=== PATIENT | male | born 1975 | race Caucasian/White ===

== ENCOUNTER 2019-03-31 12:24 | Emergency (ER) | payer OTHER ==
[2019-03-31 12:32] VITALS: BP 158/100
[2019-03-31] MEDS ORDERED: OXYCODONE-ACETAMINOPHEN 5-325 MG TABLET PO ONE (12:41)
--- NOTE | 2019-03-31 12:42 | ER Document Report ---
HPI - HPI Time Seen by Provider: 03/31/19 12:38 Pain Level: 2 - MUSCULOSKELETAL Musculoskeletal: REPORTS: Extremity pain - r hand Past Medical History - Social History Smoking Status: Current Every Day Smoker Chew tobacco use (# tins/day): No Frequency of alcohol use: Occasional Drug Abuse: None Patient has suicidal ideation: No Patient has homicidal ideation: No Renal/ Medical History: Denies: Hx Peritoneal Dialysis GI Medical History: Reports: Hx Gastroesophageal Reflux Disease Psychiatric Medical History: Reports: Hx Depression - PTSD Past Surgical History: Reports: Hx Tonsillectomy Course - Vital Signs Vital signs: Temp Pulse Resp BP Pulse Ox 98.2 F 84 19 158/100 H 98 03/31/19 12:29 03/31/19 12:29 03/31/19 12:29 03/31/19 12:29 03/31/19 12:29 Discharge - Discharge Referrals: LOCALMD,NO [Primary Care Provider] - Follow up as needed
--- NOTE | 2019-03-31 13:32 | RADIOLOGY REPORT (SQ) ---
EXAM DESCRIPTION: HAND RIGHT 3 VIEWS COMPLETED DATE/TIME: 03/31/2019 1:10 pm REASON FOR STUDY: hand pain after punching a heavybag COMPARISON: None. EXAM PARAMETERS: NUMBER OF VIEWS: Three views. TECHNIQUE: AP, lateral and oblique radiographic images acquired of the right hand. LIMITATIONS: None. FINDINGS: MINERALIZATION: Normal. BONES: No acute fracture or dislocation. No worrisome bone lesions. JOINTS: No effusions. SOFT TISSUES: No soft tissue swelling. No foreign body. OTHER: No other significant finding. IMPRESSION: NEGATIVE STUDY OF THE RIGHT HAND. NO RADIOGRAPHIC EVIDENCE OF ACUTE INJURY. TECHNICAL DOCUMENTATION: JOB ID: [id number] [employer]- All Rights Reserved Reading location - IP/workstation name: [email or web address]
--- NOTE | 2019-03-31 14:08 | ER Document Report ---
HPI - HPI Time Seen by Provider: 03/31/19 12:38 Pain Level: 4 Notes: Patient is a 43-year-old male with no significant past medical history presents complaining of right hand pain swelling and bruising after punching a punching bag about 5 days ago. Patient states that he has had some increased swelling and pain since then. Patient reports having broken this hand previously. Denies drug allergies. No other concerns or complaints. He is right-hand dominant. Denies any headache, fever, URI, sore throat, chest pain, palpitations, syncope, cough, shortness of breath, wheeze, dyspnea, abdominal pain, nausea/vomiting/diarrhea, urinary retention, dysuria, hematuria, loss of control of bowel or bladder, numbness/tingling, muscle paralysis/weakness, or rash. - ROS Systems Reviewed and Negative: Yes All other systems reviewed and negative - MUSCULOSKELETAL Musculoskeletal: REPORTS: Extremity pain - r hand Past Medical History - Social History Smoking Status: Current Every Day Smoker Chew tobacco use (# tins/day): No Frequency of alcohol use: Occasional Drug Abuse: None Family History: Reviewed & Not Pertinent Patient has suicidal ideation: No Patient has homicidal ideation: No Renal/ Medical History: Denies: Hx Peritoneal Dialysis GI Medical History: Reports: Hx Gastroesophageal Reflux Disease Psychiatric Medical History: Reports: Hx Depression - PTSD Past Surgical History: Reports: Hx Tonsillectomy Vertical Provider Document - CONSTITUTIONAL Agree With Documented VS: Yes Notes: PHYSICAL EXAMINATION: GENERAL: Well-appearing, well-nourished and in no acute distress. HEAD: Atraumatic, normocephalic. NECK: Normal range of motion, supple without lymphadenopathy. No midline tenderness. LUNGS: Breath sounds clear to auscultation bilaterally and equal. No wheezes rales or rhonchi. HEART: Regular rate and rhythm without murmurs, rubs, gallops. Musculoskeletal: Rt hand/wrist: + swelling and mild ecchymosis noted to the dorsal lateral hand with associated tenderness. N/V intact distal. FROM to passive/active at the wrist. 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 No scaphoid tenderness. Extremities: No cyanosis, clubbing, or edema b/l. Peripheral pulses 2+. Capillary refill less than 3 seconds. NEUROLOGICAL: Normal speech, normal gait. Normal sensory, motor exams otherwise unremarkable PSYCH: Normal mood, normal affect. SKIN: see above. No rash Course - Re-evaluation Re-evalutation: 03/31/19 14:15 Patient is an afebrile, well-hydrated, 43-year-old male who presents to the ED with Rt hand pain which I suspect to be a sprain/strain vs contusion. Vitals are acceptable without any significant tachycardia, tachypnea, or hypoxia. PE is otherwise unremarkable for any neurovascular compromise, obvious tendon/ligament rupture, obvious fracture/dislocation, septic joint. X-ray was unremarkable for any acute pathology. Cock up splint provided today. Pt given tylenol/motrin. Patient is nontoxic-appearing. No other labs or imaging warranted at this time based on H&P. Conservative measures otherwise for symptoms. Recheck with your PCM in 3-5 days. Consider consult orthopedics. Return to the ED with any worsening/concerning symptoms otherwise as reviewed in discharge. Patient is in agreement. - Vital Signs Vital signs: Temp Pulse Resp BP Pulse Ox 98.2 F 84 19 158/100 H 98 03/31/19 12:29 03/31/19 12:29 03/31/19 12:29 03/31/19 12:29 03/31/19 12:29 Discharge - Discharge Clinical Impression: Right hand pain Condition: Stable Disposition: HOME, SELF-CARE Additional Instructions: Rest, Ice, Compression, Elevation Tylenol/ibuprofen as needed Light stretches daily Strength exercises as able Moist heat and massage may help F/u with your PCP in 3-5 days for a recheck Consider consult(s) with Orthopedics/physical therapy for ongoing/worsening symptoms Return to the ED with any worsening symptoms and/or development of fever, headache, chest pain, palpitations, syncope, shortness of breath, trouble breathing, abdominal pain, n/v/d, muscle weakness/paralysis, numbness/tingling, swelling, redness, or other worsening symptoms that are concerning to you. Prescriptions: Methocarbamol [Robaxin] 500 mg PO TID PRN #12 tablet PRN Reason: Naproxen 500 mg PO BID #14 tablet Forms: Elevated Blood Pressure, Smoking Cessation Education, Return to Work Referrals: [facility] [Provider Group] - Follow up as needed
[2019-03-31] MEDS ORDERED: ACETAMINOPHEN 325 MG TABLET PO ONE (14:13)
[2019-03-31] MEDS ORDERED: IBUPROFEN 600 MG TABLET PO ONE (14:13)
== END 2019-03-31 14:26 | disposition home or self-care (01) ==
LOC: ER 12:24
DX: M79.641 Pain in right hand (principal); F17.200 Nicotine dependence, unspecified, uncomplicated
CPT/HCPCS: 99283; L3908

== ENCOUNTER 2019-04-15 19:03 | Emergency (ER) | payer OTHER ==
[2019-04-15 19:21] VITALS: BP 101/63
[2019-04-15] MEDS ORDERED: KETOROLAC TROMETHAMINE INJ/PF 30 MG/1 ML SDV IV ONE (19:29)
[2019-04-15] MEDS ORDERED: ONDANSETRON HCL INJ/PF 4 MG/2 ML SDV IV ONE (19:29)
--- NOTE | 2019-04-15 19:31 | ER Document Report ---
ED Medical Screen (RME) - General Chief Complaint: Abdominal Pain Stated Complaint: ABDOMINAL PAIN Time Seen by Provider: 04/15/19 19:26 Primary Care Provider: MELINDA PETTY [Primary Care Provider] - Follow up as needed Mode of Arrival: Wheelchair Information source: Patient Notes: Patient presents with left-sided abdominal pain that started about 3 hours ago. Patient states he had no pain and then suddenly had sharp pain that broke him out in sweat and he became nauseous and vomited x2. Patient denies any flank pain, fever or testicular tenderness. hx: GERD I have greeted and performed a rapid initial assessment of this patient. A comprehensive ED assessment and evaluation of the patient, analysis of test results and completion of the medical decision making process will be conducted by additional ED providers. TRAVEL OUTSIDE OF THE [place] IN LAST 30 DAYS: No - Related Data Allergies/Adverse Reactions: No Known Allergies Allergy (Verified 03/31/19 12:25) Past Medical History Renal/ Medical History: Denies: Hx Peritoneal Dialysis GI Medical History: Reports: Hx Gastroesophageal Reflux Disease Psychiatric Medical History: Reports: Hx Depression - PTSD Past Surgical History: Reports: Hx Tonsillectomy Physical Exam - Vital signs Vitals: Temp Pulse Resp BP Pulse Ox 97.5 F 73 20 101/63 98 04/15/19 19:17 04/15/19 19:17 04/15/19 19:17 04/15/19 19:17 04/15/19 19:17 - Abdominal Tenderness: Tender - Left side abdominal pain Course - Vital Signs Vital signs: Temp Pulse Resp BP Pulse Ox 97.5 F 73 20 101/63 98 04/15/19 19:17 04/15/19 19:17 04/15/19 19:17 04/15/19 19:17 04/15/19 19:17 Doctor's Discharge - Discharge Referrals: MALINDA,MELINDA [Primary Care Provider] - Follow up as needed
[2019-04-15 20:47] LABS: ABSOLUTE BASOPHILS # (AUTO) 0.1 10^3/uL (0.0-0.2); BASOPHILS % (AUTO) 0.3 % (0-2); MEAN CORPUSCULAR HGB CONC 33.7 g/dL (32.0-36.0); TOTAL CELLS COUNTED % (AUTO) 100 %
[2019-04-15 20:52] LABS: ABSOLUTE EOSINOPHILS # (AUTO) 0.2 10^3/uL (0.0-0.6); ABSOLUTE LYMPHOCYTES (AUTO) 1.9 10^3/uL (0.5-4.7); ABSOLUTE MONOCYTES (AUTO) 1.3 10^3/uL (0.1-1.4); ABSOLUTE NEUT (AUTO) 16.4 10^3/uL (1.7-8.2); HEMATOCRIT 51.6 % (37.9-51.0); HEMOGLOBIN 17.4 g/dL (13.5-17.0); LYMPHOCYTES % (AUTO) 9.6 % (13-45); MEAN CORPUSCULAR HEMOGLOBIN 29.5 pg (27.0-33.4); MEAN CORPUSCULAR VOLUME 88 fl (80-97); MONOCYTES % (AUTO) 6.5 % (3-13); PLATELET COUNT 297 10^3/uL (150-450); RED BLOOD COUNT 5.89 10^6/uL (4.35-5.55); RED CELL DISTRIBUTION WIDTH 13.4 % (11.5-14.0); SEGMENTED NEUTROPHILS % (AUTO) 82.6 % (42-78); WHITE BLOOD COUNT 19.9 10^3/uL (4.0-10.5)
[2019-04-15 21:03] LABS: ALANINE AMINOTRANSFERASE 32 U/L (21-72); ALBUMIN 4.9 g/dL (3.5-5.0); ALKALINE PHOSPHATASE 82 U/L (38-126); ANION GAP 12 (5-19); ASPARTATE AMINO TRANSFERASE 34 U/L (17-59); BILIRUBIN,DIRECT 0.4 mg/dL (0.0-0.4); BILIRUBIN,TOTAL 0.7 mg/dL (0.2-1.3); BLOOD UREA NITROGEN 13 mg/dL (7-20); CALCIUM 10.3 mg/dL (8.4-10.2); CARBON DIOXIDE 27 mmol/L (22-30); CHLORIDE 102 mmol/L (98-107); GLUCOSE 138 mg/dL (75-110); LIPASE 334.6 U/L (23-300); SODIUM 140.5 mmol/L (137-145)
== END 2019-04-15 21:45 | disposition left against medical advice (07) ==
LOC: ER 19:03
DX: R10.9 Unspecified abdominal pain (principal); R10.819 Abdominal tenderness, unspecified site; R11.2 Nausea with vomiting, unspecified; Z53.20 Procedure and treatment not carried out because of patient's decision for unspecified reasons
CPT/HCPCS: 99281; 96374; 96375; 36415; 83690; 85025; 80053; J1885; J2405

== ENCOUNTER 2019-04-21 14:58 | Emergency (ER) | payer OTHER ==
[2019-04-21] MEDS ORDERED: NORMAL SALINE 1000 ML 1,000 ML IV ONE (15:41)
--- NOTE | 2019-04-21 15:43 | ER Document Report ---
ED Medical Screen (RME) - General Chief Complaint: Abdominal Pain Stated Complaint: STOMACH PAIN Time Seen by Provider: 04/21/19 15:38 Primary Care Provider: MALINDA,MELINDA [Primary Care Provider] - Follow up as needed Mode of Arrival: Wheelchair Information source: Patient Notes: 43-year-old male presented to ED for complaint of abdominal pain nausea vomiting and diarrhea. He states the abdominal pain is been generalized. He states the abdominal pain nausea vomiting diarrhea and fever started on Thursday. He came into the emergency room he had blood work done and left before the results he was reevaluated by another provider. He states he was called by 1 of the nurses and told that his white count was elevated. He states he is continued to have fevers off and on. He states he smokes a pack a day drinks a sixpack a week and uses Marinol for his PTSD and other problems. He does have a history of PTSD, TBI, anxiety, degenerative disc these in the neck and migraines. Patient is alert oriented respirations regular and unlabored speaking in full sentences. I have greeted and performed a rapid initial assessment of this patient. A comprehensive ED assessment and evaluation of the patient, analysis of test results and completion of medical decision making process will be conducted by an additional ED providers. Dictation of this chart was performed using voice recognition software; therefore, there may be some unintended grammatical errors. TRAVEL OUTSIDE OF THE [place] IN LAST 30 DAYS: No - Related Data Allergies/Adverse Reactions: No Known Allergies Allergy (Verified 04/21/19 15:00) Past Medical History Renal/ Medical History: Denies: Hx Peritoneal Dialysis GI Medical History: Reports: Hx Gastroesophageal Reflux Disease Psychiatric Medical History: Reports: Hx Attention Deficit Hyperactivity Disorder, Hx Depression - PTSD Past Surgical History: Reports: Hx Tonsillectomy Physical Exam - Vital signs Vitals: Temp Pulse Resp BP Pulse Ox 98.1 F 84 16 119/81 98 04/21/19 15:14 04/21/19 15:14 04/21/19 15:14 04/21/19 15:14 04/21/19 15:14 Course - Vital Signs Vital signs: Temp Pulse Resp BP Pulse Ox 98.1 F 84 16 119/81 98 04/21/19 15:14 04/21/19 15:14 04/21/19 15:14 04/21/19 15:14 04/21/19 15:14 Doctor's Discharge - Discharge [facility] [[facility] - Follow up as needed
[2019-04-21 16:17] LABS: ABSOLUTE BASOPHILS # (AUTO) 0.1 10^3/uL (0.0-0.2); ABSOLUTE EOSINOPHILS # (AUTO) 0.2 10^3/uL (0.0-0.6); ABSOLUTE LYMPHOCYTES (AUTO) 2.6 10^3/uL (0.5-4.7); ABSOLUTE MONOCYTES (AUTO) 0.8 10^3/uL (0.1-1.4); ABSOLUTE NEUT (AUTO) 6.7 10^3/uL (1.7-8.2); BASOPHILS % (AUTO) 0.7 % (0-2); HEMATOCRIT 49.5 % (37.9-51.0); HEMOGLOBIN 16.9 g/dL (13.5-17.0); LYMPHOCYTES % (AUTO) 25.3 % (13-45); MEAN CORPUSCULAR HEMOGLOBIN 29.9 pg (27.0-33.4); MEAN CORPUSCULAR HGB CONC 34.1 g/dL (32.0-36.0); MEAN CORPUSCULAR VOLUME 88 fl (80-97); MONOCYTES % (AUTO) 7.4 % (3-13); PLATELET COUNT 286 10^3/uL (150-450); RED BLOOD COUNT 5.63 10^6/uL (4.35-5.55); RED CELL DISTRIBUTION WIDTH 13.1 % (11.5-14.0); SEGMENTED NEUTROPHILS % (AUTO) 64.6 % (42-78); TOTAL CELLS COUNTED % (AUTO) 100 %; WHITE BLOOD COUNT 10.3 10^3/uL (4.0-10.5)
[2019-04-21 16:29] LABS: ALANINE AMINOTRANSFERASE 24 U/L (21-72); ALBUMIN 4.4 g/dL (3.5-5.0); ALKALINE PHOSPHATASE 68 U/L (38-126); ANION GAP 7 (5-19); ASPARTATE AMINO TRANSFERASE 24 U/L (17-59); BILIRUBIN,DIRECT 0.2 mg/dL (0.0-0.4); BILIRUBIN,TOTAL 0.5 mg/dL (0.2-1.3); BLOOD UREA NITROGEN 10 mg/dL (7-20); CALCIUM 10.3 mg/dL (8.4-10.2); CARBON DIOXIDE 29 mmol/L (22-30); CHLORIDE 102 mmol/L (98-107); GLUCOSE 91 mg/dL (75-110); LIPASE 385.1 U/L (23-300); POTASSIUM 4.2 mmol/L (3.6-5.0); SODIUM 137.5 mmol/L (137-145); TOTAL PROTEIN 7.1 g/dL (6.3-8.2)
--- NOTE | 2019-04-21 16:59 | RADIOLOGY REPORT (SQ) ---
EXAM DESCRIPTION: ACUTE ABDOMEN SERIES COMPLETED DATE/TIME: 04/21/2019 4:31 pm REASON FOR STUDY: Abdominal pain nausea vomiting diarrhea COMPARISON: None. NUMBER OF VIEWS: Three views. TECHNIQUE: Frontal chest, supine abdomen and upright abdomen radiographic images acquired. LIMITATIONS: None. FINDINGS: CHEST: No acute infiltrates. No pleural effusion or pneumothorax. Cardiac silhouette siz e, major unremarkable. FREE AIR: None. No abnormal gas collections. BOWEL GAS PATTERN: Nonobstructive pattern. No dilated loops or air fluid levels. CALCIFICATIONS: No suspicious calcifications. HARDWARE: None in the abdomen. SOFT TISSUES: No gross mass or suggestion of organomegaly. BONES: No acute fracture. No worrisome bone lesions. OTHER: No other significant finding. IMPRESSION: NO RADIOGRAPHIC EVIDENCE FOR ACUTE ABDOMINAL DISEASE. TECHNICAL DOCUMENTATION: JOB ID: [id number] [employer]- All Rights Reserved Reading location - IP/workstation name: [email or web address]
[2019-04-21 18:59] LABS: APPEARANCE,URINE CLEAR; BILIRUBIN,URINE NEGATIVE (NEGATIVE); COLOR,URINE YELLOW; GLUCOSE, URINE NEGATIVE (NEGATIVE); KETONES,URINE NEGATIVE (NEGATIVE); LEUKOCYTE ESTERASE,URINE NEGATIVE (NEGATIVE); NITRITE,URINE NEGATIVE (NEGATIVE); PROTEIN,URINE NEGATIVE (NEGATIVE); URINE SPECIFIC GRAVITY 1.017; UROBILINOGEN,URINE NEGATIVE mg/dL (<2.0)
[2019-04-21 19:20] LABS: URINE AMPHETAMINES SCREEN UNCONFIRMED POSITIVE; URINE BARBITURATES SCREEN NEGATIVE; URINE BENZODIAZEPINES SCREEN NEGATIVE; URINE MARIJUANA (THC) SCREEN UNCONFIRMED POSITIVE; URINE PHENCYCLIDINE SCREEN NEGATIVE
[2019-04-21 19:21] LABS: URINE COCAINE SCREEN NEGATIVE
[2019-04-21 19:22] LABS: URINE METHADONE SCREEN NEGATIVE
--- NOTE | 2019-04-21 19:58 | ER Document Report ---
ED General - General Chief Complaint: Abdominal Pain Stated Complaint: STOMACH PAIN Time Seen by Provider: 04/21/19 15:38 Primary Care Provider: MALINDA,MELINDA [Primary Care Provider] - Follow up as needed Mode of Arrival: Wheelchair Information source: Patient TRAVEL OUTSIDE OF THE [place] IN LAST 30 DAYS: No - HPI Patient complains to provider of: Stomach pain, intestinal spasms, fever, weakness, diarrhea Onset: Other - 1 week ago Onset/Duration: Constant Quality of pain: Sharp Severity: Severe Pain Level: 4 Associated symptoms: Body/muscle aches, Diarrhea, Fever, Nausea, Vomiting Exacerbated by: Denies Relieved by: Denies Similar symptoms previously: No Recently seen / treated by doctor: No Notes: 43-year-old male coming in today chief complaint of intense intestinal spasms, nausea, vomiting, diarrhea, weakness for about a week, possibly getting slightly better. Patient came to our facility last Thursday and had labs drawn but did not stick around to be seen due to a long wait. He is continued to have the above symptoms. He got a call back from the hospital telling him he had a high white blood cell count and to return if he was not feeling any better. - Related Data Allergies/Adverse Reactions: No Known Allergies Allergy (Verified 04/21/19 15:00) Past Medical History - General Information source: Patient - Social History Smoking Status: Current Every Day Smoker Chew tobacco use (# tins/day): No Frequency of alcohol use: Social Family History: Reviewed & Not Pertinent Patient has suicidal ideation: No Patient has homicidal ideation: No Neurological Medical History: Reports: Hx Migraine Renal/ Medical History: Denies: Hx Peritoneal Dialysis GI Medical History: Reports: Hx Gastroesophageal Reflux Disease Psychiatric Medical History: Reports: Hx Attention Deficit Hyperactivity Disorder, Hx Depression - PTSD Past Surgical History: Reports: Hx Tonsillectomy Review of Systems - Review of Systems Notes: Constitutional: Positive for fever and chills EENT: No eye redness. No eye pain. No ear pain. No sore throat. Cardiovascular: No chest pain. No palpitations. Respiratory: No cough. No shortness of breath. No respiratory distress. Gastrointestinal: Positive for abdominal pain, nausea, vomiting, diarrhea Genitourinary: Atraumatic. No lesions. No pain. No discharge. Musculoskeletal: Atraumatic. No swelling. No deformities. Skin: No rash or lesions. Lymphatic: No swollen lymph nodes. Neurologic: No headache. No syncope. Psychiatric: No suicidal or homicidal ideation. Physical Exam - Vital signs Vitals: Temp Pulse Resp BP Pulse Ox 98.1 F 84 16 119/81 98 04/21/19 15:14 04/21/19 15:14 04/21/19 15:14 04/21/19 15:14 04/21/19 15:14 - Notes Notes: General: Well-developed, well-nourished. In no acute distress. Non-toxic appearing. Cardiac: Well-perfused. Regular rate and rhythm. No murmurs, rubs, or gallops. Pulmonary: No respiratory distress. No cyanosis. Bilateral lung fiels are clear to auscultation. Abdominal: Non-distended. Non-rigid. Bowels sounds are present in all four quadrants. No guarding or rebound. HEENT: Head is atraumatic. Conjunctivae not reddened. No tearing. PERRL. EOMI. O rbits atraumatic. No periorbital swelling or erythema. Oropharynx is without erythema, swelling, or exudates. Neck: Supple. No adenopathy. No meningismus. Dermatologic: Warm with good turgor. No rash. Atraumatic. Chest: Atraumatic. No chest wall tenderness to palpation. Musculoskeletal: Moves all extremities well. No range of motion deficits. no muscular or joint tenderness. No paraspinal muscle tenderness. no midline spinal tenderness or step-off. Genitourinary: Examination deferred Neurologic: No gross neurologic deficits. Psychiatric: Normal mood. Course - Re-evaluation Re-evalutation: 04/21/19 19:58 Labs reassuring. Patient is not in leukocytosis. Likely viral etiology. Given length of time that he is been symptomatic, will send off for stool culture, ova and parasites, and C. difficile. Doubt that these will show anything. We will call the patient back of any of these come back positive. - Vital Signs Vital signs: Temp Pulse Resp BP Pulse Ox 98.1 F 84 16 119/81 98 04/21/19 15:14 04/21/19 15:14 04/21/19 15:14 04/21/19 15:14 04/21/19 15:14 - Laboratory Result Diagrams: 04/21/19 15:48 04/21/19 15:48 Laboratory results interpreted by me: 04/21/19 04/21/19 15:48 15:48 RBC 5.63 H Calcium 10.3 H Lipase 385.1 H Discharge - Discharge Clinical Impression: Gastroenteritis Condition: Good Disposition: HOME, SELF-CARE Instructions: Abdominal Pain ([facility]), Antispasmodics ([facility]), Clear Liquid Diet ([facility]), Gastroenteritis (adult) ([facility]), Oral Narcotic Medication ([facility]) Additional Instructions: We will notify you if any of your stool studies come back positive and need a specific treatment. Until then, take Bentyl as needed for intestinal cramping. Drink plenty of fluids and be sure to drink some beverages with electrolytes to help replenish what you're losing in your stool. Prescriptions: Dicyclomine HCl [Bentyl 20 mg Tablet] 20 mg PO Q6HP PRN #20 tablet PRN Reason: [facility]errals: [facility] [Primary [facility]] - Follow up as needed
[2019-04-21] MEDS ORDERED: HYDROCODONE/ACETAMINOPHEN 5-325 MG (6 TAB/ER DISP) PO PRN (20:03)
[2019-04-21 20:17] VITALS: BP 144/86
== END 2019-04-21 20:26 | disposition home or self-care (01) ==
LOC: ER 14:58
DX: K52.9 Noninfective gastroenteritis and colitis, unspecified (principal); R50.9 Fever, unspecified; R11.2 Nausea with vomiting, unspecified; R53.1 Weakness; F17.200 Nicotine dependence, unspecified, uncomplicated; R10.9 Unspecified abdominal pain
CPT/HCPCS: 99284; 96360; 96361; 36415; 87045; 87205; 83690; 85025; 80053; 81001; 80307; 87493; 74022; J7030

== ENCOUNTER 2019-07-18 19:51 | Emergency (ER) | payer OTHER ==
--- NOTE | 2019-07-18 20:35 | ER Document Report ---
ED GI/ - General Chief Complaint: Abdominal Pain Stated Complaint: ABDOMINAL PAIN Time Seen by Provider: 07/18/19 20:34 Primary Care Provider: MELINDA PETTY [Primary Care Provider] - Follow up as needed Mode of Arrival: Ambulatory Information source: Patient Notes: HISTORY OF PRESENT ILLNESS: Patient is a 43-year-old male with a past medical history of chronic abdominal pain who presents with recurrence of his abdominal pain beginning earlier today. Patient reports he had sudden onset left flank pain that has since radiated down to the lower abdomen, and now is mainly in the scrotum. Patient reports "I feel like I have been kicked in the nuts." Patient reports that he has a history of kidney stones in the past and this feels similar but not identical. He reports multiple episodes of vomiting, denies fevers, also denies issues with urination. Location: Scrotum, abdomen Onset: Earlier today Provocation: Unknown Quality: Sharp, throbbing Radiation: Left flank down to the left lower abdomen Severity: Severe Timing: Constant Associated symptoms: Denies hematuria or dysuria, no fevers or chills REVIEW OF SYSTEMS: CONSTITUTIONAL : Denies fever or chills, no sweats. Denies recent illness. EENT: Denies eye, ear, throat, or mouth pain or symptoms. Denies nasal or sinus congestion. CARDIOVASCULAR: Denies chest pain. RESPIRATORY: Denies cough, cold, or chest congestion. Denies shortness of breath, difficulty breathing, or wheezing. GASTROINTESTINAL: Denies abdominal pain. Denies nausea, vomiting, or diarrhea. Denies constipation. GENITOURINARY: Positive for left flank and scrotal pain. Denies difficulty urinating, painful urination, burning, frequency, or blood in urine. MUSCULOSKELETAL: Denies neck or back pain or joint pain or swelling. SKIN: Denies rash or skin lesions. HEMATOLOGIC : Denies easy bruising or bleeding. LYMPHATIC: Denies swollen, enlarged glands. NEUROLOGICAL: Denies altered mental status or loss of consciousness. Denies headache. Denies weakness or paralysis or loss of use of either side. Denies problems with gait or speech. Denies sensory or motor loss. PSYCHIATRIC: Denies anxiety or stress or depression. All other systems reviewed and negative. PHYSICAL EXAMINATION: GENERAL: Uncomfortable-appearing, well-nourished and in no acute distress. HEAD: Atraumatic, normocephalic. No scalp deformity, depression, or crepitance. EYES: Pupils are 3 mm and equal/round/reactive to light, extraocular movements intact, sclera anicteric, conjunctiva are normal. ENT: Nares patent bilaterally, oropharynx clear without exudates or palatal petechia. Moist mucous membranes. No tonsil hypertrophy. NECK: Normal range of motion, supple without lymphadenopathy. LUNGS: Breath sounds present, equal, and clear to auscultation bilaterally. No wheezes, rales, or rhonchi. HEART: Regular rate and rhythm without murmurs, rubs, or gallops. 2+ peripheral pulses. Normal capillary refill. ABDOMEN: Soft, nontender, nondistended. Normoactive bowel sounds. No guarding, no rebound. No masses appreciated. BACK: Normal contour, no midline tenderness. Rectal exam deferred. GENITAL: Normal external genitalia, no penile discharge or bleeding, normal vertical lie of the bilateral testes without tenderness or swelling of the scrotum. EXTREMITIES: Normal range of motion, no pitting or edema. No cyanosis. NEUROLOGICAL: No focal neurological deficits. Moves all extremities spontaneously and on command. PSYCH: Normal mood, normal affect. No suicidal thoughts/ideations. No homicidal thoughts/ideations. No hallucinations. SKIN: Warm, dry, normal turgor, no rashes or lesions noted. ASSESSMENT AND PLAN: This patient is a 43-year-old male who presents with acute worsening of his chronic abdominal pain that now involves the scrotum. 1. Will obtain labs, urine, drug screen, scrotal ultrasound, and CT scan of the abdomen/pelvis. 2. Will give IV Toradol for pain control. TRAVEL OUTSIDE OF THE [place] IN LAST 30 DAYS: No - HPI Patient complains to provider of: Abdominal pain Onset: This afternoon Timing/Duration: Sudden, Worse Quality of pain: Sharp, Throbbing Severity at maximum: Severe Severity in ED: Severe Pain Level: 5 Location: LLQ, Left flank, Left testicle, Right testicle Sexual history: Active Associated symptoms: None Exacerbated by: Movement, Walking Relieved by: Denies Similar symptoms previously: No Recently seen / treated by doctor: No - Related Data Allergies/Adverse Reactions: No Known Allergies Allergy (Verified 04/21/19 15:00) Past Medical History - General Information source: Patient, Relative - Social History Smoking Status: Current Every Day Smoker Chew tobacco use (# tins/day): No Frequency of alcohol use: None Drug Abuse: None Lives with: Family Family History: Reviewed & Not Pertinent Patient has suicidal ideation: No Patient has homicidal ideation: No - Past Medical History Cardiac Medical History: Reports: None Pulmonary Medical History: Reports: None EENT Medical History: Reports: None Neurological Medical History: Reports: Hx Migraine Endocrine Medical History: Reports: None Renal/ Medical History: Reports: Hx Kidney Stones. Denies: Hx Peritoneal Dialysis Malignancy Medical History: Reports None GI Medical History: Reports: Hx Gastroesophageal Reflux Disease, Other - History of chronic abdominal pain Musculoskeletal Medical History: Reports None Skin Medical History: Reports None Psychiatric Medical History: Reports: Hx Attention Deficit Hyperactivity Disorder, Hx Depression - PTSD Traumatic Medical History: Reports: None Infectious Medical History: Reports: None Past Surgical History: Reports: Hx Tonsillectomy - Immunizations Immunizations up to date: Yes Hx Diphtheria, Pertussis, Tetanus Vaccination: Yes Review of Systems - Review of Systems Constitutional: No symptoms reported EENT: No symptoms reported Cardiovascular: No symptoms reported Respiratory: No symptoms reported Gastrointestinal: Abdominal pain, Nausea Genitourinary: No symptoms reported Male Genitourinary: See HPI, Testicular pain Musculoskeletal: No symptoms reported Skin: No symptoms reported Hematologic/Lymphatic: No symptoms reported Neurological/Psychological: No symptoms reported -: Yes All other systems reviewed and negative Physical Exam - Vital signs Vitals: Temp Pulse Resp BP Pulse Ox 97.9 F 70 18 110/63 99 07/18/19 20:13 07/18/19 20:13 07/18/19 20:13 07/18/19 20:13 07/18/19 20:13 Interpretation: Normal Course - Re-evaluation Re-evalutation: 07/19/19 00:26 Ultrasound is grossly unremarkable. CT scan shows likely bladder stone passed from the left ureter. Patient is symptomatically resolved. Will discharge the patient home with strict return precautions and follow-up with primary care. All results were explained to and discussed with the patient, and all questions addressed and answered. The patient voices both understanding and agreeing with the plan. - Vital Signs Vital signs: Temp Pulse Resp BP Pulse Ox 97.9 F 88 14 116/75 100 07/18/19 22:51 07/18/19 22:51 07/18/19 22:51 07/18/19 22:51 07/18/19 22:51 - Laboratory Result Diagrams: 07/18/19 21:35 07/18/19 21:35 Laboratory results interpreted by me: 07/18/19 07/18/19 07/18/19 21:35 21:35 21:35 WBC 15.3 H RBC 3.92 L Hgb 11.8 L Hct 34.6 L Lymph % (Auto) 10.6 L Absolute Neuts (auto) 12.6 H Seg Neutrophils % 82.2 H Glucose 143 H Total Protein 6.2 L Urine Protein 100 H Urine Ketones TRACE H Urine Blood LARGE H Urine Urobilinogen 4.0 H - Diagnostic Test Radiology reviewed: Image reviewed, Reports reviewed Discharge - Discharge Clinical Impression: Ureterolithiasis Condition: Good Disposition: HOME, SELF-CARE Instructions: Kidney Stone ([facility]) Additional Instructions: You have been evaluated in the Emergency Department for abdomen pain related to a kidney stone that you are starting to pass. While here, you had a CAT scan and an ultrasound and it is now safe to be discharged home. Please follow-up with your primary physician as instructed in one week to be rechecked. Return to the Emergency Department if you experience worsening pain, the inability to urinate, high fevers, or any other concerning symptoms. Prescriptions: Hydrocodone/Acetaminophen [Pixley 5-325 mg Tablet] 1 tab PO Q6HP PRN #20 tablet PRN Reason: For Pain Ondansetron [Zofran Odt 4 mg Tablet] 1 tab PO Q8HP PRN #30 tab.rapdis PRN Reason: For Nausea/Vomiting [facility]errals: [facility] [Primary [facility] Provider] - Follow up as needed Print Language: Spanish
[2019-07-18] MEDS ORDERED: KETOROLAC TROMETHAMINE INJ/PF 30 MG/1 ML SDV IV ONE (21:22)
[2019-07-18 21:51] LABS: AMORPHOUS SEDIMENT,URINE TRACE /HPF; APPEARANCE,URINE CLOUDY; BILIRUBIN,URINE NEGATIVE (NEGATIVE); COLOR,URINE AMBER; GLUCOSE, URINE NEGATIVE (NEGATIVE); KETONES,URINE TRACE mg/dL (NEGATIVE); LEUKOCYTE ESTERASE,URINE NEGATIVE (NEGATIVE); NITRITE,URINE NEGATIVE (NEGATIVE); PROTEIN,URINE 100 mg/dL (NEGATIVE); URINE SPECIFIC GRAVITY 1.019
[2019-07-18 21:52] LABS: ABSOLUTE BASOPHILS # (AUTO) 0.1 10^3/uL (0.0-0.2); ABSOLUTE EOSINOPHILS # (AUTO) 0.1 10^3/uL (0.0-0.6); ABSOLUTE LYMPHOCYTES (AUTO) 1.6 10^3/uL (0.5-4.7); ABSOLUTE MONOCYTES (AUTO) 0.9 10^3/uL (0.1-1.4); ABSOLUTE NEUT (AUTO) 12.6 10^3/uL (1.7-8.2); BASOPHILS % (AUTO) 0.4 % (0-2); EOSINOPHILS % (AUTO) 0.6 % (0-6); HEMATOCRIT 34.6 % (37.9-51.0); HEMOGLOBIN 11.8 g/dL (13.5-17.0); LYMPHOCYTES % (AUTO) 10.6 % (13-45); MEAN CORPUSCULAR HEMOGLOBIN 30.2 pg (27.0-33.4); MEAN CORPUSCULAR HGB CONC 34.2 g/dL (32.0-36.0); MEAN CORPUSCULAR VOLUME 88 fl (80-97); MONOCYTES % (AUTO) 6.2 % (3-13); PLATELET COUNT 285 10^3/uL (150-450); RED BLOOD COUNT 3.92 10^6/uL (4.35-5.55); RED CELL DISTRIBUTION WIDTH 13.5 % (11.5-14.0); SEGMENTED NEUTROPHILS % (AUTO) 82.2 % (42-78); TOTAL CELLS COUNTED % (AUTO) 100 %; WHITE BLOOD COUNT 15.3 10^3/uL (4.0-10.5)
[2019-07-18 22:12] LABS: ALBUMIN 3.9 g/dL (3.5-5.0); ALKALINE PHOSPHATASE 83 U/L (38-126); ANION GAP 10 (5-19); ASPARTATE AMINO TRANSFERASE 32 U/L (17-59); BILIRUBIN,DIRECT 0.2 mg/dL (0.0-0.4); BILIRUBIN,TOTAL 0.4 mg/dL (0.2-1.3); BLOOD UREA NITROGEN 11 mg/dL (7-20); CALCIUM 9.4 mg/dL (8.4-10.2); CARBON DIOXIDE 25 mmol/L (22-30); CHLORIDE 103 mmol/L (98-107); GLUCOSE 143 mg/dL (75-110); POTASSIUM 3.7 mmol/L (3.6-5.0); TOTAL PROTEIN 6.2 g/dL (6.3-8.2)
--- NOTE | 2019-07-18 22:35 | RADIOLOGY REPORT (SQ) ---
EXAM DESCRIPTION: US SCROTUM COMPLETED DATE/TME: 07/18/2019 21:19 CLINICAL HISTORY: 43 years, Male, Testicular pain COMPARISON: None. TECHNIQUE: LIMITATIONS: None. FINDINGS: There is a small right-sided hydrocele. There are no focal lesions within the testicles. No evidence of testicular torsion. No evidence of epididymitis. IMPRESSION: Small right-sided hydrocele. copyright 2010 [employer]- All Rights Reserved
--- NOTE | 2019-07-18 22:41 | RADIOLOGY REPORT (SQ) ---
EXAM DESCRIPTION: CT ABDOMEN PELVIS WITHOUT IV CONTRAST COMPLETED DATE/TME: 07/18/2019 21:19 CLINICAL HISTORY: 43 years Male, LEFT Flank/abdominal pain Comparison: None. Technique: No contrast. Coronal and sagittal reformat. This exam was performed according to our departmental dose-optimization program, which includes automated exposure control, adjustment of the mA and/or kV according to patient size and/or use of iterative reconstruction technique.[facility]: Dose Right [facility]: CareDose [facility]: Dose Right [facility]: Teradose 4D [facility]: [employer] LIMITATIONS: None Findings: Punctate, less than 0.2 cm bilateral nephrolithiasis, minimal left perinephric fat stranding, mild left hydronephrosis/hydroureter, and punctate bladder stone at the left paracentral posterior bladder, image 33 of series 601 possibly indicating a recently passed stone. Mild diffuse colonic bowel wall thickening. No ascites. No pneumoperitoneum. No bowel obstruction. No evidence of abdominal aortic aneurysm. Normal appendix. No gross evidence of gallbladder inflammation, hepatobiliary obstruction, or portal vein defect. Unenhanced lower thorax, abdominopelvic structures, and musculoskeleton appear otherwise grossly unremarkable. Impression: 1. Mild diffuse colitis. Differential etiologies include infectious, inflammatory, and neoplastic processes. 2. Mild left hydronephrosis and possible recently passed 0.2 cm bladder stone. Punctate bilateral nephrolithiasis.
[2019-07-18 22:57] LABS: URINE AMPHETAMINES SCREEN NEGATIVE; URINE BARBITURATES SCREEN NEGATIVE; URINE BENZODIAZEPINES SCREEN NEGATIVE; URINE COCAINE SCREEN NEGATIVE; URINE MARIJUANA (THC) SCREEN UNCONFIRMED POSITIVE; URINE METHADONE SCREEN NEGATIVE; URINE PHENCYCLIDINE SCREEN NEGATIVE
[2019-07-19 01:06] VITALS: BP 131/78
== END 2019-07-19 01:06 | disposition home or self-care (01) ==
LOC: ER 19:51
DX: N20.1 Calculus of ureter (principal); R10.9 Unspecified abdominal pain; G89.29 Other chronic pain; R10.30 Lower abdominal pain, unspecified; N50.82 Scrotal pain; R11.10 Vomiting, unspecified; N50.812 Left testicular pain; N50.811 Right testicular pain; F17.200 Nicotine dependence, unspecified, uncomplicated
CPT/HCPCS: 99284; 96374; 36415; 83690; 85025; 80053; 81001; 80307; 76870; 93976; 74176; J1885